=== PATIENT | male | born 1975 | race Caucasian/White ===

== ENCOUNTER 2018-10-21 22:37 | Emergency (ER) | payer OTHER ==
[~2018-10-21] VITALS: Ht 172.7 cm; Wt 83.9 kg
[2018-10-22 02:26] VITALS: BP 130/86
== END 2018-10-22 02:27 | disposition home or self-care (01) ==
LOC: ER 22:37
DX: N50.819 Testicular pain, unspecified (principal); F17.210 Nicotine dependence, cigarettes, uncomplicated